=== PATIENT | female | born 1980 | race Caucasian/White ===

== ENCOUNTER → 2018-01-05 03:22 | Outpatient (CLI) | payer SELFPAY ==
[2018-01-05 12:52] LABS: TSH 0.03 uIU/mL (0.358-3.74)
[2018-01-05 17:27] LABS: T3, Total 192 ng/dl (97-169)
== END ==
PROVIDERS: PCP Family Medicine; Visit Provider Family Medicine
DX: E05.90 Thyrotoxicosis, unspecified without thyrotoxic crisis or storm (principal)
CPT/HCPCS: 36415; 84439; 84443; 84480

== ENCOUNTER 2018-01-12 05:25 | Outpatient (CLI) | payer SELFPAY ==
[2018-01-18 20:44] LABS: Thyrotropin Receptor Ab <1.00 IU/L
== END 2018-01-12 05:45 ==
PROVIDERS: PCP Family Medicine; Visit Provider Family Medicine
DX: E05.90 Thyrotoxicosis, unspecified without thyrotoxic crisis or storm (principal)
CPT/HCPCS: 36415; 84235

== ENCOUNTER 2018-05-04 16:48 | Outpatient (CLI) | payer SELFPAY ==
[2018-05-04 19:01] LABS: FREE T4 0.98 ng/dL (0.76-1.46)
== END 2018-05-04 17:08 ==
PROVIDERS: PCP Family Medicine; Visit Provider Internal Medicine Endocrinology, Diabetes & Metabolism
DX: E05.90 Thyrotoxicosis, unspecified without thyrotoxic crisis or storm (principal)
CPT/HCPCS: 36415; 84439

== ENCOUNTER 2018-06-01 09:10 | Outpatient (CLI) | payer SELFPAY ==
[2018-06-01 10:43] LABS: TSH 0.11 uIU/mL (0.358-3.74)
== END 2018-06-01 09:30 ==
PROVIDERS: PCP Family Medicine; Visit Provider Internal Medicine Endocrinology, Diabetes & Metabolism
DX: E05.90 Thyrotoxicosis, unspecified without thyrotoxic crisis or storm (principal)
CPT/HCPCS: 36415; 84439; 84443

== ENCOUNTER 2018-07-03 16:26 | Outpatient (CLI) | payer SELFPAY ==
[2018-07-03 19:22] LABS: FREE T4 1.16 ng/dL (0.76-1.46); TSH 0.16 uIU/mL (0.358-3.74)
[2018-07-04 16:33] LABS: T3, Total 175 ng/dl (97-169)
== END 2018-07-03 16:46 ==
PROVIDERS: PCP Family Medicine; Visit Provider Internal Medicine Endocrinology, Diabetes & Metabolism
DX: E05.10 Thyrotoxicosis with toxic single thyroid nodule without thyrotoxic crisis or storm (principal); E05.90 Thyrotoxicosis, unspecified without thyrotoxic crisis or storm
CPT/HCPCS: 36415; 84439; 84443; 84480

== ENCOUNTER 2018-08-14 11:26 | Outpatient (CLI) | payer SELFPAY | END 2018-08-14 11:46 | PROVIDERS: PCP Family Medicine; Visit Provider Internal Medicine Endocrinology, Diabetes & Metabolism | DX: E05.90 Thyrotoxicosis, unspecified without thyrotoxic crisis or storm (principal) | CPT/HCPCS: 36415; 84443 ==

== ENCOUNTER 2018-09-11 16:41 | Outpatient (CLI) | payer SELFPAY ==
[2018-09-11 19:14] LABS: FREE T4 0.68 ng/dL (0.76-1.46); TSH 0.32 uIU/mL (0.358-3.74)
[2018-09-12 16:35] LABS: T3, Total 129 ng/dl (97-169)
== END 2018-09-11 17:01 ==
PROVIDERS: PCP Family Medicine; Visit Provider Internal Medicine Endocrinology, Diabetes & Metabolism
DX: E05.90 Thyrotoxicosis, unspecified without thyrotoxic crisis or storm (principal)
CPT/HCPCS: 36415; 84439; 84443; 84480

== ENCOUNTER 2019-01-03 15:57 | Outpatient (CLI) | payer SELFPAY ==
[2019-01-03 18:30] LABS: FREE T4 0.88 ng/dL (0.76-1.46); TSH 0.12 uIU/mL (0.36-3.74)
[2019-01-04 18:23] LABS: T3, Total 163 ng/dl (97-169)
== END 2019-01-03 16:17 ==
PROVIDERS: PCP Family Medicine; Visit Provider Internal Medicine Endocrinology, Diabetes & Metabolism
DX: E05.90 Thyrotoxicosis, unspecified without thyrotoxic crisis or storm (principal)
CPT/HCPCS: 36415; 84439; 84443; 84480

== ENCOUNTER 2019-06-06 16:51 | Emergency (ER) | payer BC, SELFPAY ==
[2019-06-06 17:42] LABS: Bilirubin Negative (Negative); Blood Trace-intact (Negative); Clarity Clear (Clear); Glucose Negative (Negative); Ketones >=160 mg/dL (Negative); Leukocyte Esterase Negative (Negative); Nitrite Negative (Negative); Urobilinogen 0.2 EU/dL (Up TO 0.2); pH 5.5 (5-8)
[2019-06-06 17:44] VITALS: BP 114/83; PULSE 95; RESP 16; TEMP 36.7; O2SAT 99
[2019-06-06 17:52] LABS: Bacteria Negative HPF (Negative); C & S Indicated? No; Casts Negative LPF (Negative); Crystals Negative HPF (Negative); Epithelial Cells Moderate HPF (Negative); Mucus Negative (Negative); Other Cells Negative (Negative); RBC 0-2 HPF (0-2); WBC 0-2 HPF (0-5)
--- NOTE | 2019-06-06 17:53 | NUR.NOTE ---
To room 9 with c/o constipation. Pt reports last BM 10 days ago. has been taking miralax x 3 days, having soft puppy poop. Denies black/bloody stools. Intermittent abd pain. Denies N/V, I feel like i'm so full because nothing is going anywhere. Taking miralax x 3 days. Denies hx of abd surgery. Hx of constipation, x5-6 days intermittently.
[2019-06-06 18:25] LABS: Abs Immature Grans 0.02 k/cumm (0.0-0.09); Absolute Basophil Count 0.04 k/cumm (0.0-0.2); Absolute Monocyte Count 0.69 k/cumm (0.11-0.7); Absolute Neutrophil Count 6.83 k/cumm (1.2-6.7); Basophils % 0.4; HCT 41.4 % (36.0-46.0); HGB 13.5 g/dL (12.0-15.5); Immature Grans % 0.2 %; Lymphocytes % 21.5; Mean Corp. HGB Concentration 32.6 g/dL (32.0-36.0); Mean Corpuscular Hemoglobin 28.2 pg (27.0-33.0); Mean Corpuscular Volume 86.6 fL (80-95); Mean Platelet Volume 10.7 fL (8.0-11.0); Monocytes % 7.1; Neutrophils % 69.8; Platelet Count 314 x1000/uL (130-400); RBC 4.78 m/cumm (4.00-5.20); RBC Distribution Width 14.4 % (11.7-14.6); White Blood Cell Count 9.78 k/cumm (4.4-10.8)
--- NOTE | 2019-06-06 18:30 | ED.GENADUL_ITS ---
Discharge Plan Disposition Patient Disposition: HOME Discharge Details Chief Complaint: Abd Prob Clinical Impression: Constipation, Elevated bilirubin Primary Care Provider: Guadalupe Gardner ED Provider: Kosta Rosales Home Meds and New Rx's Prescriptions: New mineral oil [Fleet Mineral Oil] Enema 118 ml AK ONCE Qty: 135 RF: 0 magnesium citrate Solution 300 ml PO ONCE Qty: 296 RF: 0 Continued methimazole 10 mg tablet 7.5 mg PO DAILY RF: 0 citalopram 20 mg tablet 20 mg PO DAILY Qty: 90 RF: 4 Mirena 1 EACH intrauterine device 1 ea Intrauterine USEASDIRECTD RF: 0 Discharge Instructions Instructions: Constipation (ED) Additional Instructions: Please use enema as discussed. Your bilirubin level was mildly elevated today. Be sure to follow this up with your primary care physician. Please contact your primary care physician to arrange follow-up. Additional diagnostic testing are indicated should symptoms persist. Return to the ER immediately for any worsening or new concerning symptoms. Referrals: Guadalupe Gardner MD [Primary Care Provider] - Medical Decision Making 38-year-old female with constipation for the past 10 days. Abdominal exam is benign. MiraLAX is not improving symptoms. Plan will be for enema. I offered enema here and patient would prefer to perform enema at home. Labs reviewed and mild elevation of bilirubin noted. Electrolytes normal. Urinalysis normal. Plan will be for outpatient follow-up with PCP. Given chronic intermittent GI problems, patient may benefit from colonoscopy. Results and plan discussed with patient who understands importance of timely follow-up. HPI General Mode of arrival: ambulatory . Date/Time Provider Initiated Documentation: 06/06/19 17:31 . Limitations to Documentation: no limitations . Information obtained by: patient . HPI Narrative: 38-year-old female presents with chief complaint of constipation. Patient notes 10 days without substantial bowel movement. She notes tiny sized bowel movements over the past 10 days. She denies melena or bright red blood per rectum. No abdominal pain. She does feel some abdominal fullness. Patient states that she has had irregular bowel movements chronically for years with intermittent bouts of constipation that typically improves with MiraLAX. She has tried MiraLAX with current episode wi thout relief. She has not had a colonoscopy. Related Data Home Medications Medication Instructions Recorded Confirmed Mirena 1 ea INTRAUTERINE USEASDIRECTD 08/16/12 06/06/19 citalopram 20 mg tablet 20 mg PO DAILY #90 tab-cap 03/28/19 06/06/19 methimazole 10 mg tablet 7.5 mg PO DAILY tab 03/28/19 06/06/19 magnesium citrate 300 ml PO ONCE #296 ml 06/06/19 mineral oil [Fleet Mineral Oil] 118 ml AK ONCE #135 ml 06/06/19 Previous Rx's Medication Instructions Recorded citalopram 20 mg tablet 20 mg PO DAILY #90 tab-cap 03/28/19 magnesium citrate 300 ml PO ONCE #296 ml 06/06/19 mineral oil [Fleet Mineral Oil] 118 ml AK ONCE #135 ml 06/06/19 Allergies Allergy/AdvReac Type Severity Reaction Status Date / Time No Known Drug Allergies Allergy Unverified 03/28/19 08:18 General Stated Complaint: Abd Prob JAZ: 3 Review of Systems All systems reviewed & are unremarkable except as noted in HPI and below Constitutional Constitutional: Denies fever(s) Gastrointestinal Gastrointestinal: Reports as per HPI, Denies abdominal pain, Denies nausea and Denies vomiting Genitourinary Genitourinary: Denies dysuria PFSH Surgical History Cervical Procedure (~2011) LEEP Reduction mammoplasty (~10/2014) Family History Mother No problems noted. Father , age 61 Depression Heart disease Myocardial infarction Brother Depression Son Asthma Son No problems noted. Daughter No problems noted. Social History Smoking/Tobacco Use Status: Never Alcohol Intake: current Alcohol Intake frequency: holidays/special occasions only Alcohol type: beer Drug use: Never Substance use type: does not use Caregiver/Support person: No Household members: children Housing: house Communication Needs: None Do you need help understanding health information?: Never Pets and animals: Yes Pets and animals: cat(s) Sexually active: Yes Do you think of yourself as: straight/heterosexual Current gender identity: female What is your relationship status?: How often do you talk on the phone with friends or family?: twice per week How often do you get together with friends or relatives?: once per week How often do you attend sabianist or holiness services?: 1-3 times per year Do you belong to any clubs or organized social groups?: no Panel score (0-1 are the most socially isolated patients): 1 What type of physical activity do you participate in: walking Duration: 15-30 minutes/day Frequency: 1-2 times per week Leana/Latter-Day: None Special leana needs: No Seatbelt use: sometimes Drive intox or ride w/intox transport driver: No Do you feel safe at home: Yes Do you feel safe in your relationship?: Yes Exam Const General: cooperative and no acute distress HENMT Mouth: moist mucous membranes Eyes Conjunctivae: normal conjunctivae Sclera: normal sclerae Neck Neck: trachea midline and supple Resp Auscultation: clear to auscultation bilaterally, no rales, no rhonchi and no wheezes Cardio Jugular venous pressure: no JVD Rate: regular rate and not tachycardic Rhythm: regular rhythm GI Palpation: soft, not firm, no guarding, no masses, not rigid and nontender Skin General skin exam: no rashes or lesions noted Neuro General: alert, awake and tone normal Extrem General: no edema Course Vital Signs Vital signs: Vital Signs Temperature 36.7 C 06/06/19 17:44 Pulse 95 H 06/06/19 17:44 Respiratory Rate 16 06/06/19 17:44 Blood Pressure 114/83 06/06/19 17:44 Pulse Oximetry 99 06/06/19 17:44 Temperature 36.7 C 06/06/19 17:44 Temperature Source Skin 06/06/19 17:44 Pulse 95 H 06/06/19 17:44 Respiratory Rate 16 06/06/19 17:44 Respiratory Effort 06/06/19 17:48 Blood Pressure 114/83 06/06/19 17:44 Blood Pressure Position Sitting 06/06/19 17:44 Pulse Oximetry 99 06/06/19 17:44 Lab/Test Results Lab/Test Results: Laboratory Tests Range/Units 06/06/19 06/06/19 17:25 18:15 WBC (4.4-10.8) k/cumm 9.78 RBC (4.00-5.20) m/cumm 4.78 Hgb (12.0-15.5) g/dL 13.5 Hct (36.0-46.0) % 41.4 MCV (80-95) fL 86.6 MCH (27.0-33.0) pg 28.2 MCHC (32.0-36.0) g/dL 32.6 RDW (11.7-14.6) % 14.4 Plt Count (130-400) x1000/uL 314 MPV (8.0-11.0) fL 10.7 Immature Gran % % 0.2 Neutrophils % 69.8 Lymphocytes % 21.5 Monocytes % 7.1 Eosinophils % 1.0 Basophils % 0.4 Absolute Neutrophils (1.2-6.7) k/cumm 6.83 H Absolute Lymphocytes (1.2-3.4) k/cumm 2.10 Absolute Monocytes (0.11-0.7) k/cumm 0.69 Absolute Eosinophils (0.0-0.7) k/cumm 0.10 Absolute Basophils (0.0-0.2) k/cumm 0.04 Urine Color (Yellow) Yellow Urine Clarity (Clear) Clear Urine pH (5-8) 5.5 Ur Specific [place] (1.005-1.025) 1.020 Urine Protein (Negative) mg/dL Negative Urine Ketones (Negative) mg/dL >=160 H Urine Blood (Negative) Trace-intact H Urine Nitrite (Negative) Negative Urine Bilirubin (Negative) Negative Urine Urobilinogen (Up TO 0.2) EU/dL 0.2 Ur Leukocyte Esterase (Negative) Negative Urine RBC (0-2) HPF 0-2 Urine WBC (0-5) HPF 0-2 Ur Epithelial Cells (Negative) HPF Moderate Urine Crystals (Negative) HPF Negative Urine Bacteria (Negative) HPF Negative Urine Casts (Negative) LPF Negative Urine Mucus (Negative) Negative Urine Other (Negative) Negative Ur Culture Indicated? No Urine Glucose (Negative) mg/dL Negative
[2019-06-06 18:37] LABS: ALT 17 U/L (14-59); AST 12 U/L (15-37); Albumin 4.2 g/dL (3.4-5.0); Alkaline Phosphatase 92 U/L (46-116); Anion Gap 10.6 mmol/L (3-11); BUN 4 mg/dL (7-18); Bilirubin, Total 1.6 mg/dL (0.2-1.0); CO2 27.4 mmol/L (21.0-32.0); CREATININE 0.63 mg/dL (0.55-1.02); Calcium 8.8 mg/dL (8.5-10.1); Chloride 103 mmol/L (98-107); Glucose 86 mg/dL (74-106); Potassium 3.5 mmol/L (3.5-5.1); Sodium 141 mmol/L (136-145); Total Protein 7.2 g/dL (6.4-8.2)
--- NOTE | 2019-06-06 18:57 | NUR.NOTE ---
Discharge instructions reviewed with verbal understanding. Educated on how to use enema. aware to f/u with pcp as needed. ambulated to exit with steady gait.
== END 2019-06-06 18:55 | disposition home or self-care (01) ==
PROVIDERS: Emergency Provider Student in an Organized Health Care Education/Training Program; PCP Family Medicine
DX: K59.00 Constipation, unspecified (principal); R17 Unspecified jaundice
CPT/HCPCS: 36415; 80053; 99283; 81003; 81015; 85025

== ENCOUNTER 2019-09-21 14:54 | Emergency (ER) | payer BC, SELFPAY ==
[2019-09-21 14:59] VITALS: BP 135/74; PULSE 95; RESP 18; TEMP 36.3; O2SAT 99
--- NOTE | 2019-09-21 15:14 | W.ED.GENAD ---
Discharge Plan Disposition Patient Disposition: HOME Condition: Stable Discharge Details Chief Complaint: Sorethroat Clinical Impression: Pharyngitis Primary Care Provider: Guadalupe Gardner ED Provider: Ashwin Castro Home Meds and New Rx's Prescriptions: No Action methimazole 10 mg tablet 7.5 mg PO DAILY RF: 0 citalopram 20 mg tablet 20 mg PO DAILY Qty: 90 RF: 4 Mirena 1 EACH intrauterine device 1 ea Intrauterine USEASDIRECTD RF: 0 Discharge Instructions Instructions: Pharyngitis (ED) Additional Instructions: Rapid strep test is negative, culture pending. I have also set you up for COVID testing in the tent on Monday, they should be reaching out to you to set up an appointment. Veqe-lrv-izphpne medications as directed for symptomatic control. Please watch for new or worsening symptoms and return to the ER for any concerns. Stand Alone Forms: POSITIVE COVID-19/TO BE TESTED Medical Decision Making Sore throat, left ear pain that began on Monday worsened over the past 24-48 hours. Denies any other symptoms. She appears well, nontoxic. She is afebrile, airways patent, speaks in full sentences. O2 sats are 99% on room air. Clinically this appears to be a viral pharyngitis. No evidence of peritonsillar abscess or uvula midline shift. Will obtain rapid strep and reassess Rapid strep negative, culture pending. Discussed findings with patient. We will set her up for COVID testing on Monday. Patient comfortable with this plan and has no additional questions or concerns. Will encourage adequate hydration, ifmb-[id number]-[id number] medications present meta control. Medical Records Medical records reviewed: Yes I reviewed the patient's medical records. Lab Data Lab results reviewed: Yes I reviewed the patient's lab results. Lab results narrative: Laboratory Tests Range/Units 09/21/19 15:18 Anti-Streptolysin O Ttr Cancelled Anti-DNase B (Strep) Cancelled HPI General Mode of arrival: ambulatory. Date/Time Provider Initiated Documentation: 09/21/19 15:00. Limitations to Documentation: no limitations. Information obtained by: patient. HPI Narrative: This is a 38-year-old female who reports sore throat and left ear pain that began on Monday, was mild in nature, now moderate in nature over the past 24-48 hours. She denies fever, runny nose, headache. Has taken tqot-hvy-anxmvrd Tylenol with mild relief. Denies recent travel. She has no other concerns at this time. Related Data Home Medications Medication Instructions Recorded Confirmed Mirena 1 ea INTRAUTERINE USEASDIRECTD 08/16/12 09/21/19 citalopram 20 mg tablet 20 mg PO DAILY #90 tab-cap 03/28/19 09/21/19 methimazole 10 mg tablet 7.5 mg PO DAILY tab 03/28/19 09/21/19 Previous Rx's Medication Instructions Recorded citalopram 20 mg tablet 20 mg PO DAILY #90 tab-cap 03/28/19 Allergies Allergy/AdvReac Type Severity Reaction Status Date / Time No Known Drug Allergies Allergy Unverified 03/28/19 08:18 General Stated Complaint: Sorethroat JAZ: 4 Review of Systems Constitutional Constitutional: Denies fever(s) and Denies headache(s) Eyes Eyes: Denies eye discharge ENT Ears, Nose, Mouth, and Throat: Reports otalgia, Denies headache(s), Denies sinus pain and Reports sore throat Cardiovascular Cardiovascular: Denies chest pain and Denies dyspnea Respiratory Respiratory: Denies cough and Denies dyspnea Gastrointestinal Gastrointestinal: Denies abdominal pain, Denies diarrhea, Denies nausea and Denies vomiting Integumentary/Breasts Skin/Breast: Denies rash Neurologic Neurologic: Denies headache(s) [facility] Surgical History Cervical Procedure (~2011) LEEP Reduction mammoplasty (~10/2014) Family History Mother No problems noted. Father , age 61 Depression Heart disease Myocardial infarction Brother Depression Son Asthma Son No problems noted. Daughter No problems noted. Social History Smoking/Tobacco Use Status: Never Alcohol Intake: current Alcohol Intake frequency: holidays/special occasions only Alcohol type: beer Drug use: Never Substance use type: does not use Caregiver/Support person: No Household members: children Housing: house Communication Needs: None Do you need help understanding health information?: Never Pets and animals: Yes Pets and animals: cat(s) Sexually active: Yes Do you think of yourself as: straight/heterosexual Current gender identity: female What is your relationship status?: How often do you talk on the phone with friends or family?: twice per week How often do you get together with friends or relatives?: once per week How often do you attend restorationism or bahai services?: 1-3 times per year Do you belong to any clubs or organized social groups?: no Panel score (0-1 are the most socially isolated patients): 1 What type of physical activity do you participate in: walking Duration: 15-30 minutes/day Frequency: 1-2 times per week Leana/Quaker: None Special leana needs: No Seatbelt use: sometimes Drive intox or ride w/intox driver trainer: No Do you feel safe at home: Yes Do you feel safe in your relationship?: Yes Exam Const General: cooperative, healthy appearing, comfortable and no acute distress Orientation: alert, awake and oriented x3 HENMT Head: normal to inspection, normocephalic and atraumatic Ears: external ears normal, TM's normal bilaterally and EAC's normal Mouth: moist mucous membranes Throat: posterior oropharynx normal Eyes Conjunctivae: conjunctivae normal Neck Neck: normal visual inspection, full ROM, no meningeal signs, trachea midline, supple and tender (Left cervical, superior, anterior lymphadenopathy) Resp Effort & Inspection: normal respiratory effort and able to speak in complete sentences Auscultation: clear to auscultation bilaterally Cardio Rate: regular rate Rhythm: regular rhythm Skin General skin exam: no rashes or lesions noted Neuro General: patient alert, patient awake, moves all extremities and no focal motor deficits Speech: speech normal Sensory Exam: no sensory deficits noted Psych Appearance: grossly normal Mental Status: mental status grossly normal Course Vital Signs Vital signs: Vital Signs Temperature 36.3 C L 09/21/19 14:59 Pulse 95 H 09/21/19 14:59 Respiratory Rate 18 09/21/19 14:59 Blood Pressure 135/74 09/21/19 14:59 Pulse Oximetry 99 09/21/19 14:59 Temperature 36.3 C L 09/21/19 14:59 Temperature Source Tympanic 09/21/19 14:59 Pulse 95 H 09/21/19 14:59 Respiratory Rate 18 09/21/19 14:59 Respiratory Effort Non-Labored 05/16/20 15:01 Blood Pressure 135/74 05/16/20 14:59 Blood Pressure Position Sitting 09/21/19 14:59 Pulse Oximetry 99 09/21/19 14:59 Oxygen Delivery Method Room Air 09/21/19 14:59 Oxygen Flow Rate 0 09/21/19 14:59 Pain Level 5 09/21/19 14:59
== END 2019-09-21 15:36 | disposition home or self-care (01) ==
PROVIDERS: Emergency Provider Physician Assistant; PCP Family Medicine
DX: J02.9 Acute pharyngitis, unspecified (principal); H92.02 Otalgia, left ear
CPT/HCPCS: 87880; 99282; 86060; 86215; 87081

== ENCOUNTER 2019-09-23 09:46 | Outpatient (CLI) | payer BC, SELFPAY ==
[2019-09-24 17:50] LABS: COVID-19 RT-PCR Result NEGATIVE (Negative)
== END 2019-09-23 10:06 ==
PROVIDERS: PCP Family Medicine; Visit Provider Physician Assistant
DX: Z11.59 Encounter for screening for other viral diseases (principal)
CPT/HCPCS: U0003

== ENCOUNTER 2020-05-07 14:14 | Outpatient (REF) | payer BC, SELFPAY ==
--- NOTE | 2020-05-07 13:30 | PAPFT_PTH ---
PATIENT: Aparna Wallace LOC: [facility] U#:[id number] AGE/SX: 39/F ROOM: RE05/07/[address]: DAE Hussein : 1980 BED: DIS: 05/07/2020 SPEC #: [id number] RECD: 05/07/20 15:37 STATUS: SOUPebbles REQ #: [id number] NOLBERTO: 05/07/20 13:[address]: Alannah Jorge DEPT: [facility] Cytology RECD BY: Janette Trimble ENTERED: 05/07/20 15:37 SP TYPE: PAPFT OTHR DR: Guadalupe Gardner MD Tissues: 1 - CX/ENDOCX FOR PAP SMEARS Procedures: PAP THIN PREP/UVM Screening HPV DNA PROBE Comments: [id number]
[2020-05-09 08:04] LABS: Chlamydia Result Negative (Negative); GC Result Negative (Negative)
== END 2020-05-07 14:34 ==
LOC: LBN 14:14
PROVIDERS: PCP Family Medicine; Visit Provider Nurse Practitioner Family
DX: Z11.3 Encounter for screening for infections with a predominantly sexual mode of transmission (principal); Z12.4 Encounter for screening for malignant neoplasm of cervix; Z11.51 Encounter for screening for human papillomavirus (HPV); R87.810 Cervical high risk human papillomavirus (HPV) DNA test positive
CPT/HCPCS: 87491; 87591; 88142; 87624

== ENCOUNTER 2020-07-20 09:07 | Outpatient (CLI) | payer BC, SELFPAY ==
[2020-07-20 12:23] LABS: HCT 42.4 % (36.0-46.0); HGB 13.6 g/dL (11.2-15.7); MCHC 32.1 % (32.0-36.0); MCV 90.4 fL (80-95); MPV 11.6 fL (8.0-11.0); Platelet Count 283 10^3/uL (130-400); RBC 4.69 10^6/uL (3.93-5.22); RDW 13.9 % (11.7-14.6); RDW-SD 46.1 fL; WBC 8.26 10^3/uL (4.4-10.8)
[2020-07-20 12:53] LABS: ALT 20 U/L (14-59); AST 11 U/L (15-37); Albumin 3.8 g/dL (3.4-5.0); Alkaline Phosphatase 85 U/L (46-116); Anion Gap 7.3 mmol/L (3-11); BUN 7 mg/dL (7-18); CO2 28.7 mmol/L (21.0-32.0); CREATININE 0.6 mg/dL (0.55-1.02); Calcium 8.7 mg/dL (8.5-10.1); Chloride 105 mmol/L (98-107); Ferritin 81 ng/mL (8-252); Glucose 92 mg/dL (74-106); Potassium 4.1 mmol/L (3.5-5.1); Sodium 141 mmol/L (136-145); TSH 0.18 uIU/mL (0.36-3.74); Total Protein 6.9 g/dL (6.4-8.2)
[2020-07-20 13:17] LABS: FREE T4 0.88 ng/dL (0.76-1.46)
[2020-07-20 17:28] LABS: T3, Total 147 ng/dL (97-169)
== END 2020-07-20 09:08 | disposition home or self-care (01) ==
LOC: LOS 09:07
PROVIDERS: PCP Family Medicine; Visit Provider Family Medicine
DX: E05.90 Thyrotoxicosis, unspecified without thyrotoxic crisis or storm (principal); R53.83 Other fatigue
CPT/HCPCS: 36415; 80053; 85027; 82728; 84439; 84443; 84480

== ENCOUNTER 2021-02-12 02:20 | Outpatient (CLI) | payer BC, SELFPAY ==
[2021-02-12 14:31] LABS: FREE T4 0.75 ng/dL (0.76-1.46)
[2021-02-12 22:12] LABS: T3, Total 148 ng/dL (97-169)
== END 2021-02-12 02:21 | disposition home or self-care (01) ==
LOC: LBO 02:20
PROVIDERS: PCP Family Medicine; Visit Provider Family Medicine
DX: E05.90 Thyrotoxicosis, unspecified without thyrotoxic crisis or storm (principal)
CPT/HCPCS: 36415; 84439; 84443; 84480

== ENCOUNTER 2021-03-07 08:23 | Emergency (ER) | payer BC, SELFPAY ==
--- NOTE | 2021-03-07 08:26 | ED.GENADUL_ITS ---
Discharge Plan Disposition Patient Disposition: HOME Condition: Stable Discharge Details Clinical Impression: Ankle pain Primary Care Provider: Ori Finch ED Provider: Ashwin Castro Home Meds and New Rx's Prescriptions: Continued trazodone 50 mg tablet 50 mg PO QHS PRN (Reason: sleep) Qty: 30 RF: 3 citalopram 20 mg tablet 20 mg PO DAILY Qty: 90 RF: 4 Mirena 1 EACH intrauterine device 1 ea Intrauterine USEASDIRECTD RF: 0 methimazole 10 mg tablet 10 mg PO DAILY Qty: 30 RF: 5 Discharge Instructions Instructions: Ankle Sprain (ED) Additional Instructions: Official x-ray read by me as negative for acute bony abnormality, I will persona lly call you if it is over read by radiology as abnormal. Walking boot as tolerated. Lwjs-nqw-othskrk Tylenol and/or Motrin as directed for discomfort. Rest, elevate, cool compresses every 2 hours for 20 minutes. Please watch for new or worsening symptoms and return to the ER for any concerns. If you are not improving with conservative measures of the next 5-7 days, I recommend following up with your primary care provider. Medical Decision Making 40-year-old female presents with a right ankle injury that she sustained last night when her son climbed onto her lap. Mild pain yesterday, worse upon awakening today. Patient has not taken any medication. Requesting medication now. Will give a single dose of 800 mg ibuprofen and obtain x-ray of the right ankle although low suspicion for acute bony abnormality. X-ray read by me and later confirmed by radiology as negative. Discussed x-ray findings with patient, then discussed disposition. Tall walking boot applied, patient tolerated well. Feels as though this is sufficient and does not use crutches. Standard discharge and return precautions provided. This documentation was generated using [email or web address] system, please disregard any oddities of phrase or misspellings. Medical Records Medical records reviewed: Yes I reviewed the patient's medical records. Imaging Data Radiologic Study: Attestation: I personally reviewed and interpreted this imaging study as follows: Imaging: X-Ray Radiologist's impression: PROCEDURE INFORMATION: Exam: XR Right Ankle Exam date and time: 03/07/2021 8:31 AM Age: 40 years old Clinical indication: Other: Ankle injury, son climbed onto lap TECHNIQUE: Imaging protocol: XR Right ankle. Views: 3 or more views. COMPARISON: No relevant prior studies available. FINDINGS: Bones/joints: Ankle mortise joint is intact with no malleolar fracture. Soft tissues: Normal. No significant swelling. IMPRESSION: Normal ankle. Thank you for allowing us to participate in the care of your patient. HPI General Mode of arrival: ambulatory . Date/Time Provider Initiated Documentation: 03/07/21 08:25 . Limitations to Documentation: no limitations . Information obtained by: patient . HPI Narrative: This is a 40-year-old female, past medical history of hypothyroidism and mood disorder, presenting to the ER for a right ankle injury. Patient states that yesterday her 100 pound son crawled onto her lap causing direct pressure and may be a slight twist, mild pain at that time but she did not think much of it. Denies any other injury, numbness, tingling, weakness. Reports that upon waking this morning she had increased pain over the lateral right ankle, difficulty with weightbearing, decided to come to the ER for further evaluation. At rest the pain is mild to moderate but worse with movement or bearing weight. She has not taken any mypx-qyz-xxuccxa medications for her symptoms. Related Data Home Medications Medication Instructions Recorded Confirmed Mirena 1 ea INTRAUTERINE USEASDIRECTD 08/16/12 03/07/21 trazodone 50 mg tablet 50 mg PO QHS PRN #30 tab 07/20/20 03/07/21 citalopram 20 mg tablet 20 mg PO DAILY #90 tab-cap 02/08/21 03/07/21 methimazole 10 mg tablet 10 mg PO DAILY #30 tab 02/14/21 03/07/21 Previous Rx's Medication Instructions Recorded trazodone 50 mg tablet 50 mg PO QHS PRN #30 tab 07/20/20 citalopram 20 mg tablet 20 mg PO DAILY #90 tab-cap 02/08/21 methimazole 10 mg tablet 10 mg PO DAILY #30 tab 02/14/21 Allergies Allergy/AdvReac Type Severity Reaction Status Date / Time No Known Drug Allergies Allergy Verified 03/07/21 08:31 General JAZ: 4 Review of Systems Constitutional Constitutional: Denies weakness Musculoskeletal Musculoskeletal: Denies deformity, Reports arthralgias, Denies numbness, Reports stiffness and Denies tingling Integumentary/Breasts Skin/Breast: Denies erythema Neurologic Neurologic: Denies numbness, Denies tingling and Denies weakness PFSH Medical History Hyperthyroidism Mood disorder Surgical History Cervical Procedure (~2011) LEEP Reduction mammoplasty (~10/2014) Family History Mother No problems noted. Father , age 61 Depression Heart disease Myocardial infarction Brother Depression Son Asthma Son No problems noted. Daughter No problems noted. Social History Smoking/Tobacco Use Status: Never Smoking risk assessment performed?: Yes Alcohol Intake: current Alcohol Intake frequency: a few times a month Alcohol type: beer Drug use: Never Substance use type: does not use Caregiver/Support person: No Household members: children Housing: house Communication Needs: None Do you need help understanding health information?: Never Pets and animals: Yes Pets and animals: cat(s) Sexually active: Yes Do you think of yourself as: straight/heterosexual Current gender identity: female What is your relationship status?: How often do you talk on the phone with friends or family?: twice per week How often do you get together with friends or relatives?: once per week How often do you attend mormonism or quaker services?: 1-3 times per year Do you belong to any clubs or organized social groups?: no Panel score (0-1 are the most socially isolated patients): 1 What type of physical activity do you participate in: walking Duration: 15-30 minutes/day Frequency: 1-2 times per week Leana/Druze: None Special leana needs: No Seatbelt use: sometimes Drive intox or ride w/intox emergency detail driver: No Do you feel safe at home: Yes Do you feel safe in your relationship?: Yes Exam Const General: cooperative, healthy appearing, comfortable and no acute distress Orientation: alert and awake HENWV Head: normal to inspection, normocephalic and atraumatic Eyes General: appearance normal, both eyes and all related structures Conjunctivae: conjunctivae normal Neck Neck: normal visual inspection, trachea midline and supple Resp Effort & Inspection: normal respiratory effort and able to speak in complete sentences Cardio Rate: regular rate Rhythm: regular rhythm Skin General skin exam: no rashes or lesions noted Neuro General: patient alert, patient awake, moves all extremities and no focal motor deficits Cognition: normal cognition Speech: speech normal Gait: antalgic Motor: muscle tone normal throughout Sensory Exam: no sensory deficits noted Extrem General: normal to inspection, full ROM, capillary refill normal, no pedal edema and no calf tenderness Other: Right ankle, normal inspection. Diffuse discomfort over the lateral malleolus. There is no bony point tenderness, erythema, ecchymosis, swelling. 5 and 5 strength. Normal pedal pulse and capillary refill. Neuro, vascular, tendon intact. Psych Appearance: grossly normal Mental Status: mental status grossly normal
[2021-03-07 08:27] VITALS: BP 136/73; PULSE 100; RESP 16; TEMP 36.1; O2SAT 98
--- NOTE | 2021-03-07 08:30 | DI.RAD_ITS ---
Exam(s) XR ANKLE RT COMPLETE EXAM: XR ANKLE RT COMPLETE CLINICAL HISTORY: ankle injury, son climbed onto lap. TECHNIQUE: 2D digital imaging was performed. COMPARISON: CR LEFT ANKLE COMPLETE from 05/29/2014 FINDINGS: There is no evidence of fracture or widening of the mortise. Talar dome unremarkable. No soft tissu e swelling. No osseous lesions. No osseous tarsal coalition IMPRESSION: No acute findings. DATA REPOSITORY: RADIATION DOSE DELIVERED:
[2021-03-07] MEDS: Ibuprofen 800 MG TAB PO (08:47)
--- NOTE | 2021-03-07 09:21 | DI.VRAD_ITS ---
PROCEDURE INFORMATION: Exam: XR Right Ankle Exam date and time: 03/07/2021 8:31 AM Age: 40 years old Clinical indication: Other: Ankle injury, son climbed onto lap TECHNIQUE: Imaging protocol: XR Right ankle. Views: 3 or more views. COMPARISON: No relevant prior studies available. FINDINGS: Bones/joints: Ankle mortise joint is intact with no malleolar fracture. Soft tissues: Normal. No significant swelling. IMPRESSION: Normal ankle. Dictated and Authenticated by: Frank Centeno MD. Ordering:SHE Christopher MD
== END 2021-03-07 09:15 | disposition home or self-care (01) ==
PROVIDERS: Emergency Provider Physician Assistant; PCP Family Medicine
DX: M25.571 Pain in right ankle and joints of right foot (principal); W50.0XXA Accidental hit or strike by another person, initial encounter
CPT/HCPCS: 29515; 99283; 73610

== ENCOUNTER 2021-09-01 04:20 | Outpatient (CLI) | payer BC, SELFPAY ==
[2021-09-01 12:43] LABS: HCT 44.1 % (36.0-46.0); HGB 13.7 g/dL (11.2-15.7); MCH 28.2 pg (27.0-33.0); MCHC 31.1 % (32.0-36.0); MCV 90.9 fL (80-95); MPV 11.2 fL (8.0-11.0); Platelet Count 334 10^3/uL (130-400); RBC 4.85 10^6/uL (3.93-5.22); RDW-SD 50.5 fL; WBC 8.25 10^3/uL (4.4-10.8)
[2021-09-01 13:23] LABS: ALT 19 U/L (14-59); AST 8 U/L (15-37); Albumin 3.9 g/dL (3.4-5.0); Alkaline Phosphatase 99 U/L (46-116); Anion Gap 5.6 mmol/L (3-11); BUN 11 mg/dL (7-18); Bilirubin, Total 0.6 mg/dL (0.2-1.0); CO2 28.4 mmol/L (21.0-32.0); CREATININE 0.6 mg/dL (0.55-1.02); Calcium 8.9 mg/dL (8.5-10.1); Calculated LDL 159 mg/dL (<100); Chloride 106 mmol/L (98-107); Cholesterol 223 mg/dL (<200); Glucose 90 mg/dL (74-106); HDL Cholesterol 56 mg/dL (40-60); Potassium 4.5 mmol/L (3.5-5.1); Sodium 140 mmol/L (136-145); TSH 0.94 uIU/mL (0.36-3.74); Triglyceride 41 mg/dL (<150)
[2021-09-01 13:57] LABS: FREE T4 0.84 ng/dL (0.76-1.46)
[2021-09-01 22:21] LABS: T3,Free 3.3 pg/mL (2.8-5.3)
[2021-09-02 09:45] LABS: Hepatitis C Ab w Rflx HCV PCR Negative (Negative)
[2021-09-02 10:09] LABS: HIV-1/2 Ag & Ab Screen Negative (Negative)
== END 2021-09-01 04:21 | disposition home or self-care (01) ==
LOC: LOS 04:21
PROVIDERS: PCP Family Medicine; Visit Provider Family Medicine
DX: E05.90 Thyrotoxicosis, unspecified without thyrotoxic crisis or storm (principal); Z13.6 Encounter for screening for cardiovascular disorders; I10 Essential (primary) hypertension; Z11.59 Encounter for screening for other viral diseases; Z11.4 Encounter for screening for human immunodeficiency virus [HIV]
CPT/HCPCS: 36415; 80053; 80061; 85027; 86803; 87389; 84439; 84443; 84481

== ENCOUNTER 2021-09-02 13:48 | Outpatient (REF) | payer BC, SELFPAY ==
--- NOTE | 2021-09-02 13:00 | PAPFT_PTH ---
PATIENT: Aparna Wallace LOC: [facility] U#:[id number] AGE/SX: 40/F ROOM: RE09/02/[address]: DAE Hussein : 1980 BED: DIS: 09/02/2021 SPEC #: [id number] RECD: 09/02/21 17:43 STATUS: [place] REQ #: [id number] NOLBERTO: 09/02/21 13:[address]: Alannah Jorge DEPT: [facility] Cytology RECD BY: Janette Trimble ENTERED: 09/02/21 17:43 SP TYPE: PAPFT OTHR DR: Ori Finch Tissues: 1 - CX/ENDOCX FOR PAP SMEARS Procedures: PAP THIN PREP/UVM Screening HPV DNA PROBE Comments: [id number]
[2021-09-03 15:03] LABS: Chlamydia Result Negative (Negative); GC Result Negative (Negative)
== END 2021-09-02 13:49 | disposition home or self-care (01) ==
LOC: LBN 13:48
PROVIDERS: PCP Family Medicine; Visit Provider Nurse Practitioner Family
DX: Z11.3 Encounter for screening for infections with a predominantly sexual mode of transmission (principal); Z12.4 Encounter for screening for malignant neoplasm of cervix; Z11.51 Encounter for screening for human papillomavirus (HPV); Z87.410 Personal history of cervical dysplasia
CPT/HCPCS: 87491; 87591; 88142; 87624

== ENCOUNTER 2021-10-19 02:14 | Outpatient (CLI) | payer BC, SELFPAY | END 2021-10-19 02:15 | disposition home or self-care (01) | LOC: LBO 02:14 | PROVIDERS: Visit Provider Obstetrics & Gynecology ==

== ENCOUNTER 2021-11-13 19:22 | Emergency (ER) | payer BC, SELFPAY ==
[2021-11-13 19:28] VITALS: BP 141/80; PULSE 90; RESP 17; TEMP 36.6; O2SAT 99
[2021-11-13 20:27] LABS: Abs Immature Grans 0.07 10^3/uL (0.0-0.06); Absolute Basophil Count 0.08 10^3/uL (0.0-0.2); Absolute Lymphocyte Count 2.22 10^3/uL (1.2-3.4); Absolute Neutrophil Count 8.61 10^3/uL (1.2-6.7); Basophils % 0.6; Eosinophils % 6.3; HCT 40.6 % (36.0-46.0); HGB 12.9 g/dL (11.2-15.7); Immature Grans % 0.6; Lymphocytes % 17.5; MCH 28.5 pg (27.0-33.0); MCHC 31.8 % (32.0-36.0); MCV 90 fL (80-95); MPV 10.9 fL (8.0-11.0); Monocytes % 7.1; Neutrophils % 67.9; Platelet Count 301 10^3/uL (130-400); RBC 4.52 10^6/uL (3.93-5.22); RDW 14.2 % (11.7-14.6); RDW-SD 46.5 fL; WBC 12.68 10^3/uL (4.4-10.8)
--- NOTE | 2021-11-13 20:38 | ED.GENADUL_ITS ---
Discharge Plan Disposition Patient Disposition: HOME Condition: Stable Discharge Details Clinical Impression: Encounter for IUD removal, Menometrorrhagia Primary Care Provider: Ysabel Goodman ED Provider: Janette Law Home Meds and New Rx's Prescriptions: New medroxyprogesterone 10 mg tablet 10 mg PO TID Qty: 15 0RF Continued Mirena 1 EACH intrauterine device 1 ea Intrauterine USEASDIRECTD citalopram 20 mg tablet 20 mg PO DAILY Qty: 90 3RF methimazole 10 mg tablet 10 mg PO DAILY Qty: 90 3RF Rx Instructions: 02-14-21 increased dose/ TAKE ONE TABLET DAILY Discharge Instructions Additional Instructions: Please call SHIPPING AND RECEIVING WEIGHER on Monday to schedule follow-up We have removed your IUD and you may have an abnormal menstrual. Should you have bleeding more than 1 pad or tampon an hour, weakness, dizziness associated with bleeding, or with any new or worsening complaints, please return to the emergency department for reassessment I have given you a prescription for progesterone oral medication Do not start this until tomorrow and use it only if you are going through more than 1 pad an hour If you start bleeding more heavily than this, you may return to the emergency department Referrals: Ysabel Goodman, WIRELESS WATCHER [Primary Care Provider] - Discharge Data Discharge Date/Time-TO BE ENTERED AT DEPARTURE: 11/13/21 21:15 Medical Decision Making Patient requests that I remove her IUD, it was removed without incident She feels improved She has not been bleeding significantly at time of my assessment She is encouraged to follow-up with her SHIPPING AND RECEIVING WEIGHER on Monday Return precautions discussed and patient expressed understanding Medical Records Medical records reviewed: Yes I reviewed the patient's medical records. Lab Data Lab results reviewed: Yes I reviewed the patient's lab results. ECG Data Prior ECG tracings: available for review HPI General Date/Time Provider Initiated Documentation: 11/13/21 19:56 . HPI Narrative: 40-year-old female presents with vaginal bleeding. She states she started bleeding at 130 and is comfortable on July. She states that she had an IUD for approximately 3 years but has not had a menstrual period monthly. She is presenting 2 weeks early for her menstrual period she has had large clots. She denies any pain. She denies any fever, weakness, dizziness. She denies any chance of . Related Data Home Medications Medication Instructions Recorded Confirmed levonorgestrel 20 mcg/24 hours (7 1 ea intrauterine USEASDIRECTD 08/16/12 07/21/21 yrs) 52 mg intrauterine device (Mirena) citalopram 20 mg tablet 20 mg PO DAILY #90 tab-caps 05/12/21 07/21/21 methimazole 10 mg tablet 10 mg PO DAILY #90 tabs 09/03/21 medroxyprogesterone 10 mg tablet 10 mg PO TID #15 tabs 11/13/21 Previous Rx's Medication Instructions Recorded citalopram 20 mg tablet 20 mg PO DAILY #90 tab-caps 05/12/21 methimazole 10 mg tablet 10 mg PO DAILY #90 tabs 09/03/21 medroxyprogesterone 10 mg tablet 10 mg PO TID #15 tabs 11/13/21 Allergies Allergy/AdvReac Type Severity Reaction Status Date / Time No Known Drug Allergies Allergy Verified 09/14/21 10:02 General Stated Complaint: [facility] RECEIVING [facility] JAZ: 3 Review of Systems All systems reviewed & are unremarkable except as noted in HPI and below PFSH All Active Problems (Updated 11/13/21 @ 20:42 by ROSA MARIA Vickers) Encounter for IUD removal (Acute) Menometrorrhagia (Acute) Hyperthyroidism (Chronic) Longstanding, frequently mildly low TSH, on methimazole for some time, occasionally low free T4 As of 08/2021-TSH and free T4 were normal Hyperlipidemia (Acute) 08/2021-mild Mood disorder (Acute) Constipation (Acute) Personal history of cervical dysplasia (Acute 08/16/12) 2010 - APIRL II 2012 - APRIL I Migraine (Acute) Hemorrhoids (Acute 03/20/14) Deviated nasal septum (Acute 08/31/15) Depressive disorder (Acute) Anxiety (Acute) Medical History Elevated bilirubin resolved, nl 08/2021 Surgical History Cervical Procedure (~2011) LEEP Reduction mammoplasty (~10/2014) Family History Mother Lymphoma Father , age 61 Depression Heart disease Myocardial infarction Brother Depression Son Asthma Son No problems noted. Daughter No problems noted. Social History Smoking/Tobacco Use Status: Never Smoking risk assessment performed?: Yes Alcohol Intake: current Alcohol Intake frequency: holidays/special occasions only Alcohol type: beer Drug use: Never Substance use type: does not use Caregiver/Support person: No Household members: children Housing: apartment Communication Needs: None Do you need help understanding health information?: Rarely Pets and animals: Yes Pets and animals: cat(s) Sexually active: Yes Do you think of yourself as: straight/heterosexual Current gender identity: female What is your relationship status?: How often do you talk on the phone with friends or family?: three or more times per week How often do you get together with friends or relatives?: twice per week How often do you attend uatsdin or orthodox services?: 1-3 times per year Do you belong to any clubs or organized social groups?: yes Panel score (0-1 are the most socially isolated patients): 2 What type of physical activity do you participate in: walking Duration: 15-30 minutes/day Frequency: 3-4 times per week Leana/Tenriism: None Special leana needs: No Seatbelt use: sometimes Drive intox or ride w/intox rolloff driver: No Do you feel safe at home: Yes Do you feel safe in your relationship?: Yes Exam Const General: cooperative and comfortable Resp Effort & Inspection: normal respiratory effort Auscultation: clear to auscultation bilaterally Cardio Rate: regular rate Rhythm: regular rhythm Other: IUD in place small clot, no active bleeding Skin Rashes: no rashes Neuro General: patient alert and patient oriented x3 Course Vital Signs Vital signs: Vital Signs Temperature 36.6 C 11/13/21 19:28 Pulse 90 11/13/21 19:28 Respiratory Rate 17 11/13/21 19:28 Blood Pressure 141/80 H 11/13/21 19:28 Pulse Oximetry 99 11/13/21 19:28 Temperature 36.6 C 11/13/21 19:28 Temperature Source Temporal Artery Scan 11/13/21 19:28 Pulse 90 11/13/21 19:28 Respiratory Rate 17 11/13/21 19:28 Respiratory Effort Non-Labored 11/13/21 19:31 Blood Pressure 141/80 H 11/13/21 19:28 Blood Pressure Position Supine 11/13/21 19:28 Pulse Oximetry 99 11/13/21 19:28 Oxygen Delivery Method Room Air 11/13/21 19:28 Oxygen Flow Rate 0 11/13/21 19:28 Pain Level 2 11/13/21 19:40 Lab/Test Results Lab/Test Results: Laboratory Tests Range/Units 11/13/21 20:20 WBC (4.4-10.8) 10^3/uL 12.68 H RBC (3.93-5.22) 10^6/uL 4.52 Hgb (11.2-15.7) g/dL 12.9 Hct (36.0-46.0) % 40.6 MCV (80-95) fL 90 MCH (27.0-33.0) pg 28.5 MCHC (32.0-36.0) % 31.8 L RDW (11.7-14.6) % 14.2 Plt Count (130-400) 10^3/uL 301 MPV (8.0-11.0) fL 10.9 Immature Gran % 0.6 Neutrophils % 67.9 Lymphocytes % 17.5 Monocytes % 7.1 Eosinophils % 6.3 Basophils % 0.6 Nucleated RBC % (0.0-0.3) % 0.0 Absolute Neutrophils (1.2-6.7) 10^3/uL 8.61 H Absolute Lymphocytes (1.2-3.4) 10^3/uL 2.22 Absolute Monocytes (0.1-0.8) 10^3/uL 0.90 H Absolute Eosinophils (0.0-0.7) 10^3/uL 0.80 H Absolute Basophils (0.0-0.2) 10^3/uL 0.08
[2021-11-13 20:44] LABS: Anion Gap 9.6 mmol/L (3-11); BUN 8 mg/dL (7-18); CO2 25.4 mmol/L (21.0-32.0); CREATININE 0.6 mg/dL (0.55-1.02); Calcium 8.8 mg/dL (8.5-10.1); Chloride 105 mmol/L (98-107); Glucose 91 mg/dL (74-106); Potassium 3.5 mmol/L (3.5-5.1); Sodium 140 mmol/L (136-145)
[2021-11-13 20:56] VITALS: BP 122/76; PULSE 70; RESP 17; TEMP 36.6; O2SAT 99
== END 2021-11-13 21:15 | disposition home or self-care (01) ==
PROVIDERS: Emergency Provider Physician Assistant
DX: N92.1 Excessive and frequent menstruation with irregular cycle (principal)
CPT/HCPCS: 80048; 81025; 99283; 85025

== ENCOUNTER 2022-05-07 03:37 | Emergency (ER) | payer BC, SELFPAY ==
--- NOTE | 2022-05-07 03:40 | ED.GENADUL_ITS ---
Discharge Plan Disposition Patient Disposition: Home Condition: Stable Discharge Details Clinical Impression: Sore throat, Viral URI with cough Primary Care Provider: Joni Still ED Provider: Batool Westbrook Home Meds and New Rx's Prescriptions: Continued citalopram 20 mg tablet 20 mg PO DAILY Qty: 90 3RF methimazole 10 mg tablet 10 mg PO DAILY Qty: 90 3RF Rx Instructions: 02-14-21 increased dose/ TAKE ONE TABLET DAILY Discharge Instructions Instructions: Pharyngitis (ED), Upper Respiratory Infection (ED), Acute Cough (ED) Additional Instructions: Your rapid strep, COVID and influenza tests today are negative. Your symptoms may be due to another viral illness. Viruses are best treated with fluids, rest, [id number] cough and cold medication and alternating Tylenol and Motrin as needed and directed for pain or fever. Alternate tylenol and motrin as needed and directed for pain. Follow-up with your primary care doctor in 1 week. Return to the emergency department with any worsening or new concerning symptoms. Discharge Data Discharge Physician: Batool Westbrook Medical Decision Making 41-year-old female presents with sore throat, left ear pain and dry cough for the past 3 days. States the sore throat is bothering her the most. Patient appears nontoxic. Her vitals are within normal limits. Her posterior oropharynx is erythematous but no exudates or significant edema or evidence of peritonsillar abscess, drooling or trismus. Left TM dull. Lungs clear bilaterally. Differential diagnosis includes COVID, viral pharyngitis or other upper respiratory infection. History and presentation does not appear consistent with strep pharyngitis. Will obtain rapid strep and rapid SARS COVID and flu A/B antigen tests. Rapid strep and COVID/flu a and B antigen tests negative. Discussed with patient that she still may have any 1 of these illnesses and to obtain a PCR test for COVID or flu if her symptoms progress or worsen. Advised to increase fluids, rest, alternate Tylenol and Motrin. Advised to follow up with the primary care doctor for re-evaluation. Usual and customary return precautions given prior to discharge. Medical Records Medical records reviewed: Yes I reviewed the patient's medical records. HPI General Mode of arrival: ambulatory . Date/Time Provider Initiated Documentation: 05/07/22 03:39 . Limitations to Documentation: no limitations . Information obtained by: patient . HPI Narrative: Patient is a 41-year-old female presents with sore throat, ear pain and dry c ough for the past 3 days. Patient states her symptoms started with sore throat 3 days ago. She states she is having pain mainly in her left ear. She states she feels the sore throat triggers a cough which then causes her to sometimes vomit. She denies any known fever or difficulty breathing. She states she is vaccinated for COVID. Related Data Home Medications Medication Instructions Recorded Confirmed citalopram 20 mg tablet 20 mg PO DAILY #90 tab-caps 05/12/21 05/07/22 methimazole 10 mg tablet 10 mg PO DAILY #90 tabs 09/03/21 05/07/22 Previous Rx's Medication Instructions Recorded citalopram 20 mg tablet 20 mg PO DAILY #90 tab-caps 05/12/21 methimazole 10 mg tablet 10 mg PO DAILY #90 tabs 09/03/21 Allergies Allergy/AdvReac Type Severity Reaction Status Date / Time No Known Drug Allergies Allergy Verified 02/21/22 17:12 General Stated Complaint: Sorethroat JAZ: 3 Review of Systems All systems reviewed & are unremarkable except as noted in HPI and below Constitutional Constitutional: Reports as per HPI, Denies chills and Denies fever(s) Eyes Eyes: Denies blurry vision ENT Ears, Nose, Mouth, and Throat: Denies dizziness, Reports sore throat and Denies throat swelling Cardiovascular Cardiovascular: Denies chest pain and Denies dyspnea Respiratory Respiratory: Denies cough and Denies dyspnea Gastrointestinal Gastrointestinal: Denies abdominal pain, Denies diarrhea and Denies vomiting Genitourinary Genitourinary: Denies hematuria and Denies dysuria Musculoskeletal Musculoskeletal: Denies back pain and Denies numbness Integumentary/Breasts Skin/Breast: Denies lesions and Denies rash Neurologic Neurologic: Denies dizziness, Denies localized weakness and Denies numbness Allergic/Immunologic Allergic/Immunologic: Denies throat swelling PFSH All Active Problems (Updated 05/07/22 @ 04:15 by Batool Westbrook DO) Sore throat (Acute) Viral URI with cough (Acute) Wrist pain, right (Acute) Hyperthyroidism (Chronic) Longstanding, frequently mildly low TSH, on methimazole for some time, occasionally low free T4 As of 08/2021-TSH and free T4 were normal Hyperlipidemia (Acute) 08/2021-mild Mood disorder (Acute ~02/21/22) Constipation (Acute) Personal history of cervical dysplasia (Acute 08/16/12) 2010 - APRIL II 2013 - APRIL I Migraine (Acute) Hemorrhoids (Acute 03/20/14) Deviated nasal septum (Acute 08/31/15) Depressive disorder (Acute) Anxiety (Acute) Medical History (Updated 05/07/22 @ 04:15 by Batool Westbrook DO) Elevated bilirubin resolved, nl 08/2021 Surgical History Cervical Procedure (~2011) LEEP Reduction mammoplasty (~10/2014) Family History Mother Lymphoma Father , age 61 Depression Heart disease Myocardial infarction Brother Depression Son Asthma Son No problems noted. Daughter No problems noted. Social History Smoking/Tobacco Use Status: Never Smoking risk assessment performed?: Yes Alcohol Intake: current Alcohol Intake frequency: holidays/special occasions only Alcohol type: beer Drug use: Never Substance use type: does not use Caregiver/Support person: No Household members: children Housing: apartment Communication Needs: None Do you need help understanding health information?: Rarely Pets and animals: Yes Pets and animals: cat(s) Sexually active: Yes Do you think of yourself as: straight/heterosexual Current gender identity: female What is your relationship status?: How often do you talk on the phone with friends or family?: three or more times per week How often do you get together with friends or relatives?: twice per week How often do you attend nondenominational or adventist services?: 1-3 times per year Do you belong to any clubs or organized social groups?: yes Panel score (0-1 are the most socially isolated patients): 2 What type of physical activity do you participate in: walking Duration: 15-30 minutes/day Frequency: 3-4 times per week Leana/Pentecostalism: None Special leana needs: No Seatbelt use: sometimes Drive intox or ride w/intox recycling collections driver: No Do you feel safe at home: Yes Do you feel safe in your relationship?: Yes Exam Const General: cooperative, healthy appearing and no acute distress [facility] Head: normal to inspection Ears: hearing grossly normal bilaterally, external ears normal and TM abnormal dull on the left General nose exam: external nose normal Face and sinus: normal facial exam Mouth: oral mucosae normal Throat: uvula midline, no peritonsillar masses and posterior oropharynx abnormal erythema; no edema and no exudates Eyes General: appearance normal, both eyes and all related structures Pupils: PERRL EOM: EOM intact bilaterally Neck Neck: normal visual inspection, no lymphadenopathy, no meningeal signs, trachea midline, supple, no anterior neck swelling and No submandibular swelling Lymphatic: no lymphadenopathy noted Resp Effort & Inspection: normal respiratory effort and able to speak in complete sentences Neuro General: patient alert, patient awake and patient oriented x3 Extrem General: edema Psych Appearance: grossly normal Mental Status: mental status grossly normal Speech and Movement: speech and movement normal Affect: normal affect
[2022-05-07 03:46] VITALS: BP 127/78; PULSE 87; RESP 16; TEMP 36.6; O2SAT 98
== END 2022-05-07 04:56 | disposition home or self-care (01) ==
PROVIDERS: Emergency Provider Physician Assistant; PCP Nurse Practitioner Family
DX: J02.9 Acute pharyngitis, unspecified (principal); J06.9 Acute upper respiratory infection, unspecified; R05.1 Acute cough
CPT/HCPCS: 87880; 99282; 87081

== ENCOUNTER 2022-08-04 01:24 | Outpatient (CLI) | payer BC, SELFPAY ==
--- NOTE | 2022-08-04 07:00 | DI.MAMMO_ITS ---
Exam(s) MAMMO SCREENING EXAM: MAMMO SCREENING CLINICAL HISTORY: screening,z12.39, baseline TECHNIQUE: Mammograms were interpreted according to the usual protocol including computer analysis w ith CAD system, tomosynthesis and C-view imaging. COMPARISON: No exams were available for comparison. Baseline examination. FINDINGS: The breasts are composed of scattered fibroglandular densities, Breast Density category B. No suspicious masses or suspicious microcalcifications are seen. Mild pleural scarring related to pr ior breast reduction. No skin thickening or abnormal axillary lymph nodes are seen. IMPRESSION: BI-RADS Category 1, Negative mammogram Yearly screening mammography is recommended. Breast Density - Category B, scattered fibroglandular densities. A negative radiographic report should not delay biopsy if a dominant or clinically suspicious mass is present. Up to ten percent of cancers are not identified on mammography. A negative report may reinforce clinical impression. Adenosis and dense breasts may obscure an underlying neoplasm. False positive reports average 6 to 10%. Patient will receive a letter notifying them of these results.
== END 2022-08-04 01:44 ==
PROVIDERS: PCP Nurse Practitioner Family; Visit Provider Nurse Practitioner Family
DX: Z12.31 Encounter for screening mammogram for malignant neoplasm of breast (principal)
CPT/HCPCS: 77063; 77067

== ENCOUNTER 2022-08-13 07:18 | Emergency (ER) | payer BC, SELFPAY ==
[2022-08-13 07:21] VITALS: BP 131/87; PULSE 100; RESP 16; TEMP 36.6; O2SAT 98
--- NOTE | 2022-08-13 07:43 | ED.GENADUL_ITS ---
Discharge Plan Disposition Patient Disposition: Home Condition: Stable Discharge Details Clinical Impression: Acute right otitis media Primary Care Provider: Joni Still ED Provider: Kosta Rosales Home Meds and New Rx's Prescriptions: New amoxicillin-pot clavulanate 875-125 mg tablet 1 tab PO BID Qty: 19 0RF Continued methimazole 10 mg tablet 10 mg PO DAILY Rx Instructions: 02-14-21 increased dose/ TAKE ONE TABLET DAILY omeprazole 20 mg capsule,delayed release(DR/EC) 20 mg PO DAILY Qty: 90 0RF citalopram 20 mg tablet See Rx Instructions .ROUTE .COMPLEX Qty: 90 3RF Dose Instruction: TAKE 1 TABLET BY MOUTH DAILY Rx Instructions: TAKE 1 TABLET BY MOUTH DAILY Discharge Instructions Instructions: Ear Infection (ED) Additional Instructions: Please take full course of antibiotic as prescribed. Please rest and drink plenty of fluid. Please contact your primary care physician to arrange follow-up. Return to the ER immediately for any worsening or new concerning symptoms. Referrals: Joni Still, FREELANCE GRAPHIC DESIGNER [Primary Care Provider] - Medical Decision Making 41-year-old female here with acute right otitis media. Plan to initiate treatment with Augmentin. I have encouraged her to take ibuprofen and Tylenol and to allow for rest. HPI General Mode of arrival: ambulatory . Date/Time Provider Initiated Documentation: 08/13/22 07:38 . Limitations to Documentation: no limitations . Information obtained by: patient . HPI Narrative: 41-year-old female presents with chief complaint of right ear pain. Patient notes ear pain started last night and has persisted. Pain is severe. She notes difficulty hearing out of her right ear. She notes associated cough over the past few days. No fever. Related Data Home Medications Medication Instructions Recorded Confirmed citalopram 20 mg tablet See Rx Instructions .Route 06/03/22 08/13/22 .COMPLEX #90 tabs methimazole 10 mg tablet 10 mg PO DAILY 07/26/22 08/13/22 omeprazole 20 mg capsule,delayed 20 mg PO DAILY #90 caps 07/26/22 08/13/22 release amoxicillin 875 mg-potassium 1 tab PO BID #19 tabs 08/13/22 clavulanate 125 mg tablet Previous Rx's Medication Instructions Recorded citalopram 20 mg tablet See Rx Instructions .Route 06/03/22 .COMPLEX #90 tabs omeprazole 20 mg capsule,delayed 20 mg PO DAILY #90 caps 07/26/22 release amoxicillin 875 mg-potassium 1 tab PO BID #19 tabs 08/13/22 clavulanate 125 mg tablet Allergies Allergy/AdvReac Type Severity Reaction Status Date / Time No Known Drug Allergies Allergy Verified 08/13/22 07:44 General Stated Complaint: EarProblem JAZ: 4 Review of Systems Constitutional Constitutional: Denies fever(s) ENT Ears, Nose, Mouth, and Throat: Reports as per HPI and Denies sore throat PFSH All Active Problems Acute right otitis media (Acute) Dysphagia (Acute) Anxiety (Acute) Depressive disorder (Acute) Deviated nasal septum (Acute 08/31/15) Hemorrhoids (Acute 03/20/14) Migraine (Acute) Personal history of cervical dysplasia (Acute 08/16/12) 2010 - APRIL II 2013 - APRIL I Constipation (Acute) Mood disorder (Acute ~02/21/22) Hyperlipidemia (Acute) 08/2021-mild Hyperthyroidism (Chronic) Longstanding, frequently mildly low TSH, on methimazole for some time, occasionally low free T4 As of 08/2021-TSH and free T4 were normal Wrist pain, right (Acute) Medical History Elevated bilirubin resolved, nl 08/2021 Surgical History Cervical Procedure (~2011) LEEP Reduction mammoplasty (~10/2014) Family History Mother Lymphoma Father , age 61 Depression Heart disease Myocardial infarction Brother Depression Son Asthma Son No problems noted. Daughter No problems noted. Social History Smoking/Tobacco Use Status: Never Second Hand Exposure: Yes Smoking risk assessment performed?: Yes Alcohol Intake: current Alcohol Intake frequency: a few times a month Alcohol type: beer Drug use: Never Substance use type: does not use Caregiver/Support person: No Household members: children Housing: apartment Communication Needs: None Do you need help understanding health information?: Rarely Pets and animals: Yes Pets and animals: cat(s) Sexually active: Yes Do you think of yourself as: straight/heterosexual Current gender identity: female What is your relationship status?: How often do you talk on the phone with friends or family?: three or more times per week How often do you get together with friends or relatives?: once per week How often do you attend sabianist or baptist services?: 1-3 times per year Do you belong to any clubs or organized social groups?: no Panel score (0-1 are the most socially isolated patients): 1 What type of physical activity do you participate in: walking Duration: 15-30 minutes/day Frequency: 1-2 times per week Leana/Episcopalian: None Special leana needs: No Seatbelt use: sometimes Drive intox or ride w/intox hydraulic lift driver: No Do you feel safe at home: Yes Do you feel safe in your relationship?: Yes Additional Social history: cannot assess privately Exam Const General: cooperative and no acute distress HENMT Ears: right TM abnormal, TM normal on the left, EAC's normal, mastoids normal, no periauricular adenopathy and TM abnormal (rt) bulging and erythematous Mouth: moist mucous membranes Throat: posterior oropharynx normal Eyes Conjunctivae: normal conjunctivae Sclera: normal sclerae Neck Neck: trachea midline and supple Resp Auscultation: clear to auscultation bilaterally, no rales, no rhonchi and no wheezes Cardio Rate: regular rate and not tachycardic Rhythm: regular rhythm Neuro General: patient alert, patient awake and tone normal Psych Appearance: grossly normal Mental Status: mental status grossly normal Course Vital Signs Vital signs: Vital Signs Temperature 36.6 C 08/13/22 07:21 Pulse 100 H 08/13/22 07:21 Respiratory Rate 16 08/13/22 07:21 Blood Pressure 131/87 08/13/22 07:21 Pulse Oximetry 98 08/13/22 07:21 Temperature 36.6 C 08/13/22 07:21 Temperature Source Temporal Artery Scan 08/13/22 07:21 Pulse 100 H 08/13/22 07:21 Respiratory Rate 16 08/13/22 07:21 Respiratory Effort Normal, Non-Labored 08/13/22 07:28 Blood Pressure 131/87 08/13/22 07:21 Blood Pressure Position Supine 08/13/22 07:21 Pulse Oximetry 98 08/13/22 07:21 Oxygen Delivery Method Room Air 08/13/22 07:21 Oxygen Flow Rate 0 08/13/22 07:21 Pain Level 10 08/13/22 07:21 PAWSS Have you Been Recently Intoxicated or Drunk Within the Last 30 days?: No Have you Ever Experienced Previous Episodes of Alcohol Withdrawal?: No Have you ever Experienced Withdrawal Seizures?: No Have you ever Experienced Delirium Tremens(DT)s?: No Have you ever undergone Alcohol Rehabilitation Treatment (i.e, inpt ot outpatient treatment programs)?: No Have you ever Experienced Blackouts?: No Have you ever Combined Alcohol with other Downers within the last 90 days?: No Have you ever Combined Alcohol with any other Substance of Abuse during the last 90 days?: No Positive Blood Alcohol level on Presentation? [PCS.BAL]: No Evidence of Increased Autonomic Activity (i.e. HR>120, tremor, sweating, agitation, nausea)?: No Result: 0
[2022-08-13] MEDS: Amoxicillin 875/Clav. 125 TAB PO (07:47)
[2022-08-13 07:52] VITALS: BP 131/87; PULSE 90; RESP 16; TEMP 36.6; O2SAT 98
== END 2022-08-13 07:54 | disposition home or self-care (01) ==
PROVIDERS: Emergency Provider Student in an Organized Health Care Education/Training Program; PCP Nurse Practitioner Family
DX: H66.91 Otitis media, unspecified, right ear (principal)
CPT/HCPCS: 99283

== ENCOUNTER 2022-09-07 06:06 | Day surgery (SDC) | payer BC, SELFPAY ==
--- NOTE | 2022-09-07 06:22 | W.PM.HP.N ---
Date of service: 09/07/22 Time of Service: 06:27 Assessment and Plan Assessment and plan (1) Dysphagia: Status: Acute Assessment and plan: Mrs Wallace is a pleasant 41-year-old female with ongoing dysphagia.? Its happening about once a week at this time.? The omeprazole does seem to be helping with the acid taste in the back of her mouth.? It sounds like she has probably had acid reflux for some time.? I discussed doing an upper endoscopy and the reasoning behind it.? We reviewed Khoury's esophagus as well as peptic ulcer disease.? I reviewed the procedure with her in detail.? Risks, benefits and complications have been reviewed. Complications include but are not limited to bleeding, pain, perforation, sore throat, aspiration, and adverse reaction to the medications.? Questions were entertained and answered to their satisfaction and they wished to proceed. No guarantees were given or implied. Anesthesia: general (without airway) Previous surgical intolerances: No Previous surgical complications: No Pulmonary risk factors: age > 60 Date of surgery: 08/10/22 Planned procedure: Yes Sleep apnea risks: No Can climb one flight of stairs (12-13 steps) in less than 30 seconds without stopping and without symptoms: Yes The surgery proposed for this patient is: low risk Active cardiac conditions: none Active risk factors: none ASA (acetylsalicylic acid): not used Beta blockers: not used Proceed with EGD under sedation History of Present Illness Narrative: Mrs Wallace is a pleasant 41-year-old female whom I saw in the office in July for complaint of dysphagia for about 4 years as well as constipation which is also kind of a chronic thing.? In regards to her dysphagia she states that the first episode was about 4 years ago.? She ate some meat and got the hiccups and then that was followed by emesis.? She has learned that if she gets the hiccups she needs to drink something to try to get the food to go down into her stomach if she is unable to drink something fast enough then she will have an episode of emesis.? She has never had any hematemesis.? At the beginning it was quite infrequent that this was happening.? Now it is happening about once a week.? She does have acid taste in the back of her mouth intermittently.? She also sometimes wakes up with a dry cough.? She is now taking omeprazole daily.? She started this about 4 to 5 days ago.? She does find that the acid taste in the back of her mouth has disappeared. Since I saw her she was seen in the ER for an ear infection. She feels well now and her ear infection has been treated. Review of Systems All systems reviewed & are unremarkable except as noted in HPI and below PFSH All Active Problems Acute right otitis media (Acute) Dysphagia (Acute) Anxiety (Acute) Depressive disorder (Acute) Deviated nasal septum (Acute 08/31/15) Hemorrhoids (Acute 03/20/14) Migraine (Acute) Personal history of cervical dysplasia (Acute 08/16/12) 2010 - APRIL II 2012 - APRIL I Constipation (Acute) Mood disorder (Acute ~02/21/22) Hyperlipidemia (Acute) 08/2021-mild Hyperthyroidism (Chronic) Longstanding, frequently mildly low TSH, on methimazole for some time, occasionally low free T4 As of 08/2021-TSH and free T4 were normal Wrist pain, right (Acute) Medical History Elevated bilirubin resolved, nl 08/2021 Surgical History Cervical Procedure (~2011) LEEP Reduction mammoplasty (~10/2014) Family History Mother Lymphoma Father , age 61 Depression Heart disease Myocardial infarction Brother Depression Son Asthma Son No problems noted. Daughter No problems noted. Social History Smoking/Tobacco Use Status: Never Second Hand Exposure: Yes Smoking risk assessment performed?: Yes Alcohol Intake: current Alcohol Intake frequency: a few times a month Alcohol type: beer Drug use: Never Substance use type: does not use Caregiver/Support person: No Household members: children Housing: apartment Communication Needs: None Do you need help understanding health information?: Rarely Pets and animals: Yes Pets and animals: cat(s) Sexually active: Yes Do you think of yourself as: straight/heterosexual Current gender identity: female What is your relationship status?: How often do you talk on the phone with friends or family?: three or more times per week How often do you get together with friends or relatives?: once per week How often do you attend religious or pentecostal services?: 1-3 times per year Do you belong to any clubs or organized social groups?: no Panel score (0-1 are the most socially isolated patients): 1 What type of physical activity do you participate in: walking Duration: 15-30 minutes/day Frequency: 1-2 times per week Leana/Presybeterian: None Special leana needs: No Seatbelt use: sometimes Drive intox or ride w/intox reach lift truck driver: No Do you feel safe at home: Yes Do you feel safe in your relationship?: Yes Meds Allergies and Home Medications Allergies Allergy/AdvReac Type Severity Reaction Status Date / Time No Known Drug Allergies Allergy Verified 09/06/22 12:04 Home Medications Medication Instructions Recorded Confirmed Type citalopram 20 mg tablet See Rx Instructions .Route 06/03/22 09/06/22 Rx .COMPLEX #90 tabs methimazole 10 mg tablet 10 mg PO DAILY 07/26/22 09/06/22 History omeprazole 20 mg capsule,delayed 20 mg PO DAILY #90 caps 07/26/22 09/06/22 Rx release Exam Const General: comfortable and no acute distress Orientation: alert and oriented x3 HENMT Head: normocephalic and atraumatic Resp Effort & Inspection: normal respiratory effort Auscultation: clear to auscultation bilaterally Cardio Rate: regular rate Rhythm: regular rhythm Heart Sounds: no gallops, no murmurs and no rubs Time Spent Time spent with Patient: <40 minutes Time was spent: obtaining and/or reviewing separately otained hiistory and counseling the patient
--- NOTE | 2022-09-07 06:32 | W.PM.ENDDOP ---
Date of service: 09/07/22 Time of Service: 07:38 Endoscopy Report DATE OF PROCEDURE: 09/07/22 PRE-OP DIAGNOSIS: Dysphagia POST-OP DIAGNOSIS: same PROCEDURE: EGD with biopsies SURGEON: Shefali Davila ANESTHESIA TYPE: General:No Airway ESTIMATED BLOOD LOSS: 5 PATHOLOGY: other (gastric biopsy, gastric polyp, GE junction) COMPLICATIONS: None DISPOSITION: same day INDICATIONS: Mrs Wallace is a pleasant 41-year-old female with ongoing dysphagia.? Its happening about once a week at this time.? The omeprazole does seem to be helping with the acid taste in the back of her mouth.? It sounds like she has probably had acid reflux for some time.? I discussed doing an upper endoscopy and the reasoning behind it.? We reviewed Khoury's esophagus as well as peptic ulcer disease.? I reviewed the procedure with her in detail.? Risks, benefits and complications have been reviewed. Complications include but are not limited to bleeding, pain, perforation, sore throat, aspiration, and adverse reaction to the medications.? Questions were entertained and answered to their satisfaction and they wished to proceed. No guarantees were given or implied. FINDINGS: inflammation of the stomach and esophagus Hiatal Hernia Schatzki's ring PROCEDURE DESCRIPTION: After informed consent was obtained the patient was take to the procedure room and placed in a supine position. Monitors were applied and a time out was done. The patients name, date of , procedure type, allergies to medications and metal in their body was reviewed. A bite block was placed and the patient was sedated. Once sedated and comfortable the gastroscope was advanced through the oropharynx which was grossly normal into the esophagus. The proximal and mid-esophagus were normal. In the distal esophagus there was a schatzki's ring noted. The scope was advanced into the stomach and through the pylorus into the 3rd portion of the duodenum. The duodenum was noted to be normal. The scope was retracted back into the stomach and biopsies were done to rule out H. pylori. There were no ulcers. The scope was retroflexed. The cardia and fundus were noted to be normal. There were benign appearing polyps in the stomach. Biopsies were done of 2 of the polyps. There was a 3 cm hiatal hernia noted. The scope was retracted back into the esophagus and biopsies were done of the GE junction to rule out Khoury's. The Z line was regular. The GE junction was at 35 cm. Biopsies of the Schatzki's ring were done. The scope was removed and the patient was woken up and taken back to [facility] in stable condition. Follow up: 2 weeks in the office
--- NOTE | 2022-09-07 06:33 | W.PM.DSUDISC ---
Date of service: 09/07/22 Time of Service: 09:00 Discharge Plan Disposition Patient Disposition: Home Condition: Stable Discharge Details Reason For Visit: Dysphagia Attending Provider: Shefali Davila Primary Care Provider: Joni Still Home Meds and New Rx's Prescriptions: Continued methimazole 10 mg tablet 10 mg PO DAILY Rx Instructions: 02-14-21 increased dose/ TAKE ONE TABLET DAILY citalopram 20 mg tablet See Rx Instructions .ROUTE .COMPLEX Qty: 90 3RF Dose Instruction: TAKE 1 TABLET BY MOUTH DAILY Rx Instructions: TAKE 1 TABLET BY MOUTH DAILY Discontinued omeprazole 20 mg capsule,delayed release(DR/EC) 20 mg PO DAILY Qty: 90 0RF No Action omeprazole 40 mg capsule,delayed release(DR/EC) See Rx Instructions .ROUTE .COMPLEX Qty: 90 3RF Dose Instruction: TAKE 1 CAPSULE BY MOUTH DAILY Rx Instructions: TAKE 1 CAPSULE BY MOUTH DAILY Discharge Instructions Instructions: Gastritis (DC), Diet for Stomach Ulcers and Gastritis (ED), GERD (Gastroesophageal Reflux Disease) (DC), Gastric Polyps (DC) Additional Instructions: Findings: Inflammation in the stomach and esophagus Benign polyps in the stomach- most likely from chronic inflammation Follow up: 2 weeks New Medication: increase Omeprazole to 40 mg daily for 30 days then back down to 20 mg Please call if you develop: fevers >101.5 Nausea or Vomiting Abdominal pain that is not transient Rectal bleeding that is more then a tbsp A hard abdomen and inability to pass gas DAY SURGERY UNIT POST ENDOSCOPY INSTRUCTIONS Instructions for everyone who is given Anesthesia: For your safety, please do the following for the next 24 Hours: a. Do not drive or operate dangerous equipment b. Do not drink alcohol beverages or use any recreational drugs for the first 24 hours or while taking pain medications. The medications in your body may have a reaction that can be dangerous. c. Do not make any important decisions or sign any important papers 1. Generally there are no restrictions on your activity after a day or so has gone by, but you may feel a bit fatigued for a few days. 2. After you arrive home you may have a light meal and return to a normal diet as you can tolerate it without feeling sick to your stomach. 3. After surgery, you may feel pain or discomfort. This should be only transient, but if it persists please contact your doctor. 4. If there are any questions regarding the findings of your procedure, please feel free to contact your doctor. 6. If you are unable to contact your doctor with a problem, contact the hospital at [phone]. 7. Continue all your regular medications unless directed otherwise. I understand the above instructions and have no questions. Signature of Patient or Responsible Adult Escort Date/Time Name of Responsible Adult Escort Signature of Nurse Date/Time Stand Alone Forms: Anesthesia Discharge Inst., DSU Post EGD Matteo, Mary Brewster (DSU) Activity:: Activity as Tolerated Diet:: As Tolerated Discharge Orders Discharge Orders: Discharge Order (Routine); Ordered 09/07/22 Ordered By: Shefali Davila Discharge Data Discharge Date/Time-TO BE ENTERED AT DEPARTURE: 09/07/22 09:02 DS: Diagnosis Discharge Diagnosis (1) Dysphagia: Status: Acute Asessment and Plan: Patient is seen and examined after their endoscopy. Patient has minimal sore throat. They have been able to tolerate liquids. They do not have any Nausea or Vomiting. They are not having any chest pain or shortness of breath. They have been able to pass gas and are not having any abdominal pain or distention. they have not vomited any blood. The vital signs have been stable-see nursing notes. We discussed findings on their endoscopy We reviewed the importance of lifestyle modifications- see diet recommendations We reviewed any new medications that the patient may be prescribed- see medicine reconciliation. Patient will either be sent a letter with the biopsy results or follow up in the office- see discharge instructions Patient was given explicit instructions for emergency follow up post endoscopy- see discharge instructions Patient verbalized understanding and was discharged in stable and satisfactory condition. See nursing notes.
[2022-09-07 06:43] VITALS: BP 123/91; PULSE 100; RESP 16; TEMP 36.7; O2SAT 100
[2022-09-07] MEDS: Lactated Ringers 1,000 ML 80 ML IV (07:00)
--- NOTE | 2022-09-07 07:03 | W.ANESPRE ---
General Info Date of Service Date Performed: 09/07/22 Height: 5 ft Weight: 79.2 kg Body Mass Index (BMI): 34.1 Surgical Procedure: Operation Date: 09/07/22 07:35 Proposed Procedure Side Surgeon p Gastroscopy Shefali Davila MD Actual Procedure Side Surgeon p Gastroscopy Not Applicable Shefali Davila MD Pre-Op Diagnosis Post-Op Diagnosis Dysphagia Dysphagia Meds Allergies and Home Medications Allergies Allergy/AdvReac Type Severity Reaction Status Date / Time No Known Drug Allergies Allergy Verified 09/07/22 06:39 Home Medication Medication Instructions Recorded citalopram 20 mg tablet See Rx Instructions .Route 06/03/22 .COMPLEX #90 tabs methimazole 10 mg tablet 10 mg PO DAILY 07/26/22 omeprazole 20 mg capsule,delayed 20 mg PO DAILY #90 caps 07/26/22 release Current Visit Medications: Current Medications Generic Name Dose Route Start Last Admin Trade Name Freq PRN Reason Stop Dose Admin Ringer's Solution 1,000 mls @ 80 mls/hr 09/07/22 06:00 IV 09/07/22 23:59 INFUSION MARIS IV Miscellaneous Supplies 1 each 09/07/22 06:00 Iv Access IV 09/07/22 23:59 DIRECTED MARIS Ondansetron HCl 4 mg 09/07/22 06:38 Ondansetron 4 Mg/2 Ml Vial IVP Q4H PRN PRN Nausea / Vomiting Sodium Chloride 0 ml 09/07/22 06:00 Normal Saline Flush 10 Ml Syr IV 09/07/22 23:59 PRN PRN Sodium Chloride 0 ml 09/07/22 06:00 Normal Saline 10 Ml Vial IJ 09/07/22 23:59 DIRECTED PRN Sterile Water 0 ml 09/07/22 06:00 Water,Injection,Sterile 10 Ml Vial IJ 09/07/22 23:59 DIRECTED PRN PFSH Active Problems Active Problems: Problem Status Onset Code Anxiety F41.9 Depressive disorder F32.9 Deviated nasal septum 08/31/15 J34.2 Hemorrhoids 03/20/14 K64.9 Migraine G43.909 Personal history of cervical dysplasia 08/16/12 Z87.410 Constipation K59.00 Mood disorder ~02/21/22 F39 Hyperlipidemia E78.5 Hyperthyroidism E05.90 Wrist pain, right M25.531 Dysphagia R13.10 Acute right otitis media H66.91 Medical History Medical History (Updated 09/07/22 @ 06:43 by Yoli Higuera) Elevated bilirubin resolved, nl 08/2021 History of dysphagia Surgical History Surgical History (Updated 09/07/22 @ 06:42 by Yoli Higuera) Cervical Procedure (~2011) LEEP Hx of wisdom tooth extraction Reduction mammoplasty (~10/2014) Tobacco Smoking/Tobacco Use Status: Never Passive smoking exposure: Yes Second hand exposure: Yes Alcohol Alcohol Intake: current Alcohol intake frequency: a few times a month Alcohol type: beer Substance Use Substance use: Never Substance use type: does not use Details: alcohol: t-5 Vital Signs and Lab Results Vital Signs Most Recent Vital Signs in EMR: Most Recent Vital Signs Temp Pulse Resp BP Pulse Ox 36.7 C 100 H 16 123/91 H 100 09/07/22 06:43 09/07/22 06:43 09/07/22 06:43 09/07/22 06:43 09/07/22 06:43 Lab Results Blood Type / Crossmatch: No Data to Display Complete Blood Count: No Data to Display Complete Metabolic Panel: No Data to Display Liver Function Panel: No Data to Display Coagulation Panel: No Data to Display Cardiac Panel: No Data to Display Arterial Blood Gas: No Data to Display Venous Blood Gas: No Data to Display Pancreas Panel: No Data to Display Thyroid Panel: No Data to Display Infectious Disease: No Data to Display Blood Cultures: No Data to Display Toxicology Panel: No Data to Display Panel: No Data to Display Anesthesia Assessment and Plan Anesthesia History Personal History: No History of Anesthesia Complications Family History: No Family History of Anesthesia Complications Exercise Tolerance Exercise Tolerance: Metabolic Equivalents>4 Cardiac & Pulmonary Exam Cardiac Exam: Normal S1/S2 Heart Sounds Pulmonary Exam: Clear Bilateral Breath Sounds Implantable Cardiac Device Does patient have a Pacemaker or an ICD?: No Airway Exam Known Difficult Airway: No Mallampati Class: 2 Mouth Opening: Normal (> 3cm) Thyromental Distance: Greater than 3 cm Neck Range of Motion: Full ROM Neck Circumference: Normal Teeth Condition: Normal Dentition ASA Classification ASA Score: ASA 2 Emergency Case?: No NPO Status NPO Status: NPO Clears >2 hours, Solids >8 hours Status Status: Negative HCG Anesthesia Plan Resuscitation Status: Full Code Anesthesia Technique: General Anesthesia Airway Planned: Natural Airway Monitors Used: Standard Monitors
[2022-09-07 07:13] VITALS: BMI 34.1
--- NOTE | 2022-09-07 07:28 | STOM_PTH ---
PATIENT: Aparna Wallace LOC: [facility] U#:[id number] AGE/SX: 41/F ROOM: RE09/07/[address]: Shefali Davila MD : 1980 BED: DIS: 09/07/2022 SPEC #: [id number] RECD: 09/07/22 11:44 STATUS: [place] REQ #: [id number] NOLBERTO: 09/07/22 07:[address]: Shefali Davila DEPT: Surgical Specimen RECD BY: Janette Trimble ENTERED: 09/07/22 11:44 SP TYPE: STOMACH OTHR DR: Joni Garcia, DOMINIC Tissues: 1 - STOMACH BIOPSY 2 - STOMACH BIOPSY 3 - ESOPHAGUS BIOPSY Procedures: GROSS AND MICRO LEVEL 4 Comments: [id number]
[2022-09-07 07:48] VITALS: BP 134/67; PULSE 109; RESP 16; TEMP 37; O2SAT 97
[2022-09-07 08:15] VITALS: BP 112/78; PULSE 86; RESP 16; TEMP 37; O2SAT 97
--- NOTE | 2022-09-07 08:30 | W.ANESPOSTOP ---
Postoperative Evaluation Date, Time and Location Date Performed: 09/07/22 Time Performed: 08:15 Patient Location: Day Surgery Unit Vital Signs Most Recent Imported Vital Signs: Most Recent Vital Signs Temp Pulse Resp BP Pulse Ox 37.0 C 109 H 16 134/67 97 09/07/22 07:48 09/07/22 07:48 09/07/22 07:48 09/07/22 07:48 09/07/22 07:48 Pain Score Most Recent Pain Score: Most Recent Pain Score Pain Level 0 09/07/22 06:43 Assessment Mental Status: Awake (Alert & Oriented to Patient Baseline) Airway and Respiratory Function: Patent airway with normal (patient baseline) respiratory exam Cardiovascular Function: Hemodynamically Stable Hydration Status: Adequately Hydrated Nausea & Vomiting: No Nausea or Vomiting Pain: Pt. Denies Any Pain Peripheral Nerve Block: Patient did not receive a nerve block
== END 2022-09-07 09:02 | disposition home or self-care (01) ==
PROVIDERS: PCP Nurse Practitioner Family; Visit Provider Surgery
PROC: 0DJ68ZZ Inspection of Stomach, Via Natural or Artificial Opening Endoscopic (ICD-10-PCS; CPT 43235; principal; 2022-09-07 07:30)
DX: R13.10 Dysphagia, unspecified (principal); K31.7 Polyp of stomach and duodenum; K22.2 Esophageal obstruction; K44.9 Diaphragmatic hernia without obstruction or gangrene; K22.89 Other specified disease of esophagus
CPT/HCPCS: 43239; 81025; 88305; J2250; J2405; J2704

== ENCOUNTER 2022-09-27 14:46 | Outpatient (CLI) | payer BC, SELFPAY ==
[2022-09-27 08:52] LABS: ALT 12 U/L (14-59); AST 10 U/L (15-37); Albumin 3.9 g/dL (3.4-5.0); Alkaline Phosphatase 102 U/L (46-116); Anion Gap 6.9 mmol/L (3-11); BUN 6 mg/dL (7-18); Bilirubin, Total 0.9 mg/dL (0.2-1.0); CO2 29.1 mmol/L (21.0-32.0); CREATININE 0.6 mg/dL (0.55-1.02); Calcium 8.7 mg/dL (8.5-10.1); Calculated LDL 148 mg/dL (<100); Chloride 105 mmol/L (98-107); Cholesterol 224 mg/dL (<200); Estimated GFR 115.57 (mL/min/1.73m2); Glucose 100 mg/dL (74-106); HDL Cholesterol 58 mg/dL (40-60); Potassium 3.9 mmol/L (3.5-5.1); Sodium 141 mmol/L (136-145); TSH 0.52 uIU/mL (0.36-3.74); Total Protein 7.4 g/dL (6.4-8.2); Triglyceride 91 mg/dL (<150)
[2022-09-27 17:35] LABS: T3,Free 4.1 pg/mL (2.8-5.3)
== END 2022-09-27 14:47 | disposition home or self-care (01) ==
LOC: LBO 14:47
PROVIDERS: PCP Nurse Practitioner Family; Visit Provider Nurse Practitioner Family
DX: E05.90 Thyrotoxicosis, unspecified without thyrotoxic crisis or storm (principal); E78.5 Hyperlipidemia, unspecified; I10 Essential (primary) hypertension
CPT/HCPCS: 36415; 80053; 80061; 84439; 84443; 84481

== ENCOUNTER 2023-08-02 10:26 | Outpatient (REF) | payer BC, SELFPAY ==
[2023-08-01 12:14] LABS: HCT 44.2 % (36.0-46.0); HGB 13.8 g/dL (11.2-15.7); MCH 27.8 pg (27.0-33.0); MCHC 31.2 % (32.0-36.0); MCV 89 fL (80-95); MPV 11.1 fL (8.0-11.0); Platelet Count 313 10^3/uL (130-400); RBC 4.97 10^6/uL (3.93-5.22); RDW 14.5 % (11.7-14.6); RDW-SD 47.8 fL; WBC 8.02 10^3/uL (4.4-10.8)
[2023-08-01 12:39] LABS: TSH 1.86 uIU/Ml (0.36-3.74)
== END 2023-08-02 10:27 | disposition home or self-care (01) ==
LOC: LBN 10:26
PROVIDERS: PCP Nurse Practitioner Family; Referring Provider Nurse Practitioner Family; Visit Provider Nurse Practitioner Family
DX: R53.83 Other fatigue (principal); E05.90 Thyrotoxicosis, unspecified without thyrotoxic crisis or storm
CPT/HCPCS: 85027; 84439; 84443

== ENCOUNTER → 2023-08-07 03:32 | Outpatient (CLI) | payer BC, SELFPAY ==
--- NOTE | 2023-08-07 08:00 | DI.MAMMO_ITS ---
Exam(s) MAMMO SCREENING EXAM: MAMMO SCREENING CLINICAL HISTORY: screening,Z12.39 TECHNIQUE: Bilateral full field digital CC and MLO mammographic images were obtained with 3D tomosyn thesis and utilizing computer aided detection (CAD). COMPARISON: Available for comparison. FINDINGS: Masses/Architectural Distortion: There is asymmetric breast tissue in the far lateral aspect of the l eft breast on the craniocaudad view. Microcalcifications: No suspicious pleomorphic-type are seen. Skin Thickening/Nipple Retraction: None. IMPRESSION: 1. Asymmetric breast tissue at the far lateral aspect of the left breast on the craniocaudad view. 2. This area should be further evaluated with spot compression view. Limited left breast ultrasound may be indicated at that time. BI-RADS Category 0 - Assessment Incomplete: Need additional imaging evaluation Breast Density - Category B - Scattered areas of fibroglandular density Breast density category C or D implies that the patient has dense breast tissue. Dense breast tissue is very common and is not abnormal but dense breast tissue can make it harder to find cancer on a ma mmogram. Also, dense breast tissue may increase their breast cancer risk. This information about the result of the mammogram report was provided to the patient to raise their awareness. Use this report when you speak with the patient about their risks for breast cancer, which includes their family hist ory. At that time, you may recommend for more screening tests (Ultrasound or MRI) as they might be us eful based on their risk. A negative radiographic report should not delay biopsy if a dominant or clinically suspicious mass is present. Up to ten percent of cancers are not identified on mammography. A negative report may reinforce clinical impression. Adenosis and dense breasts may obscure an underlying neoplasm. False positive reports average 6 to 10%. Patient will receive a letter notifying them of these results.
--- NOTE | 2023-08-07 15:15 | DI.RAD_ITS ---
Exam(s) XR HAND LT COMPLETE EXAM: XR HAND LT COMPLETE CLINICAL HISTORY: 2 month swelling, sometimes itches,SWELLING LT INDEX FINGER,M79.89. TECHNIQUE: 2D digital imaging was performed of the left hand. Three views were obtained. AP, later al and oblique views were obtained. COMPARISON: No exams were available for comparison FINDINGS: BONES: No acute fracture is present. No bony destructive lesion is seen. JOINTS: No dislocation present. SOFT TISSUE: Normal. IMPRESSION: Unremarkable radiographs of the left hand. DATA REPOSITORY: RADIATION DOSE DELIVERED:
== END ==
PROVIDERS: PCP Nurse Practitioner Family; Visit Provider Nurse Practitioner Family
DX: Z12.31 Encounter for screening mammogram for malignant neoplasm of breast (principal); R92.8 Other abnormal and inconclusive findings on diagnostic imaging of breast; M79.645 Pain in left finger(s); M79.89 Other specified soft tissue disorders
CPT/HCPCS: 77063; 77067; 73130

== ENCOUNTER → 2023-08-09 03:36 | Outpatient (CLI) | payer BC, SELFPAY ==
--- NOTE | 2023-08-09 14:40 | DI.US_ITS ---
Exam(s) MG MAMMO SCREEN CALL BACK UNI US BREAST LT LIMITED EXAM: MG MAMMO SCREEN CALL BACK UNI and U/S breast LT limited CLINICAL HISTORY: F/U MAMMO, R92.8,ASYMMETRIC LT BREAST TISSUE. TECHNIQUE: Craniocaudal and mediolateral oblique Full Field Digital Mammography views of the left br east with Computer Aided Diagnosis followed by Tomosynthesis and left breast ultrasound. COMPARISON: Comparison is made with prior examinations. FINDINGS: Mammography/Tomosynthesis: Masses/Architectural Distortion: The area of concern in the outer left breast is less prominent on th e current examination. Microcalcifictions: No suspicious pleomorphic-type are seen. Skin Thickening/Nipple Retraction: None. Limited left breast US: Echotexture: Normal appearance of the glandular tissue. Shadowing: No suspicious foci. Cyst: None. Solid lesions: None seen. Ductal dilation: None. IMPRESSION: 1. No definite evidence of malignancy is noted. 2. A six-month follow-up left mammogram is requested for re-evaluation. 3. The findings were discussed with the patient on the date of the examination. BI-RADS Category 3 - 6 month - Probably Benign Finding: Recommend follow-up imaging in 6 months Breast Density - Category B - Scattered areas of fibroglandular density Breast density Category C or D implies that the patient has dense breast tissue. Dense breast tissue can make it harder to find cancer on a mammogram. Dense breast tissue is also associated with an incr eased risk of breast cancer. This information about the result of the mammogram report was provided to the patient to raise their awareness. Use this report when you speak with the patient about their risks for breast cancer, which includes their family history. At that time, you may recommend additional screening tests (Ultrasoun d or MRI) as these tests may add significant information. A negative radiographic report should not delay biopsy if a dominant or clinically suspicious mass is present. Up to ten percent of cancers are not identified on mammography. A negative report may reinforce clinical impression. Adenosis and dense breasts may obscure an underlying neoplasm. False positive reports average 6 to 10%. Patient will receive a letter notifying them of these results.
== END ==
PROVIDERS: PCP Nurse Practitioner Family; Visit Provider Nurse Practitioner Family
DX: R92.8 Other abnormal and inconclusive findings on diagnostic imaging of breast (principal)
CPT/HCPCS: 76642; 77063; 77067

== ENCOUNTER 2024-02-09 00:40 | Outpatient (CLI) | payer BC, SELFPAY ==
--- NOTE | 2024-02-09 07:15 | DI.MAMMO_ITS ---
Exam(s) MAMMO DIAGNOSTIC UNI EXAM: MAMMO DIAGNOSTIC UNI CLINICAL HISTORY: 6 month f/u abnl lt mammo,r92.8,z09 TECHNIQUE: Left cc and MLO mammogram images were performed according to the usual protocol [facility] computer analysis with CAD system, tomosynthesis and C-view imaging. COMPARISON: 2022 and 06 August and 09 August 2023 FINDINGS: The left breast is composed of scattered fibroglandular densities, Breast Density category B. No suspicious masses or suspicious microcalcifications are seen. No change in appearance of rashi nd of tissue in the far posterolateral left breast. No skin thickening or abnormal axillary lymph nodes are seen. IMPRESSION: BI-RADS Category 1, Negative mammogram Yearly screening mammography is recommended. Breast Density - Category B, scattered fibroglandular densities. A negative radiographic report should not delay biopsy if a dominant or clinically suspicious mass is present. Up to ten percent of cancers are not identified on mammography. A negative report may reinforce clinical impression. Adenosis and dense breasts may obscure an underlying neoplasm. False positive reports average 6 to 10%. Patient will receive a letter notifying them of these results.
== END 2024-02-09 01:00 ==
LOC: DI 00:40
PROVIDERS: PCP Nurse Practitioner Family; Visit Provider Nurse Practitioner Family
DX: Z09 Encounter for follow-up examination after completed treatment for conditions other than malignant neoplasm (principal); R92.8 Other abnormal and inconclusive findings on diagnostic imaging of breast
CPT/HCPCS: 77061; 77065; G0279

== ENCOUNTER 2024-08-01 16:47 | Outpatient (REF) | payer BC, SELFPAY ==
[2024-08-01 18:35] LABS: TSH (W/Ref FT4) 1.32 uIU/mL (0.36-3.74)
[2024-08-05 12:07] LABS: Hepatitis A Antibody IgM Negative (Negative); Hepatitis B Core Antibody Negative (Negative); Hepatitis B surface Ag Negative (Negative); Hepatitis C Ab w Rflx HCV PCR Negative (Negative)
== END 2024-08-01 16:48 | disposition home or self-care (01) ==
LOC: LBN 16:47
PROVIDERS: PCP Nurse Practitioner Family; Visit Provider Nurse Practitioner Family
DX: Z11.59 Encounter for screening for other viral diseases (principal); E05.90 Thyrotoxicosis, unspecified without thyrotoxic crisis or storm
CPT/HCPCS: 86704; 86709; 86803; 87340; 84443